=== PATIENT | female | born 1950 | race Caucasian/White ===

== ENCOUNTER → 2025-06-23 08:54 | Outpatient (REF) | payer MEDICARE, OTHER, SELFPAY | LOC: RAD 08:54 | PROVIDERS: ATTENDING PHYSICIAN Student in an Organized Health Care Education/Training Program | DX: E78.2 Mixed hyperlipidemia (principal); Z82.49 Family history of ischemic heart disease and other diseases of the circulatory system | CPT/HCPCS: 75571 ==